=== PATIENT | female | born 1950 | race Hispanic/Latino ===

== ENCOUNTER 2017-11-23 09:15 | Inpatient (IN) | payer OTHER ==
[~2017-11-23] VITALS: Ht 149.9 cm; Wt 75.9 kg
[~2017-11-23 09:15] MED LIST: ASPI-1181 PO; DOXA1TAB2 PO; ERGO500014 PO; FURO20TA4 PO; LEVO25TA54 PO; LINA1TAB7 PO; LISI-613 PO; LORA10TA7 PO; NITR0.4T50 SL
[2017-11-23 09:55] VITALS: BP 147/77
[2017-11-23 10:19] LABS: BASOPHILS % (AUTO) 0.5 % (0.0-5.0); EOSINOPHILS % (AUTO) 1.8 % (0.0-8.0); HEMATOCRIT 36.1 % (36-48); MEAN CORPUSCULAR HEMOGLOBIN 31.6 pg (27.0-33.0); MEAN CORPUSCULAR HGB CONC 34.3 g/dL (32.0-36.0); MEAN CORPUSCULAR VOLUME 92.2 fL (79-99); MONOCYTES % (AUTO) 11.8 % (3.0-13.0); NEUTROPHILS % (AUTO) 52.9 % (40.0-77.0); PLATELET COUNT (AUTO) 160 K/uL (130-400); RED BLOOD CELL COUNT(AUTO) 3.92 MIL/uL (4.00-5.50); RED CELL DISTRIBUTION WIDTH 12.9 % (11.0-15.5); WHITE BLOOD COUNT (AUTO) 5.7 K/uL (4.8-10.8)
[2017-11-23 10:27] LABS: HEMOGLOBIN A1C 6.6 % (4.0-6.0); INR 0.95 (0.85-1.15); PARTIAL THROMBOPLASTIN TIME 25.2 SEC (26.3-35.5)
[2017-11-23 10:28] LABS: ALBUMIN 3.8 g/dL (3.5-5.0); BILIRUBIN,TOTAL 0.6 mg/dL (0.2-1.0); POTASSIUM 4.6 mmol/L (3.5-5.1); TOTAL PROTEIN, SERUM 7.9 g/dL (6.0-8.3)
[2017-11-23] MEDS ORDERED: METO100T14 PO (11:08)
[2017-11-23] MEDS ORDERED: METO50TA18 PO (11:08)
[2017-11-23] MEDS ORDERED: FLUT1AER IH (11:11)
[2017-11-24] VITALS (17 sets, daily range): BP systolic 100–167; BP diastolic 47–86
[2017-11-24] MEDS ORDERED: SODIUM CHLORIDE 0.9% 1000ML 1,000 ML IV ONE (08:39)
[2017-11-24] MEDS ORDERED: OCTYL 2-CYANOACRYLATE 1 EACH TP ONE ×2 (08:44→08:47)
[2017-11-24] MEDS ORDERED: NITROGLYCERIN 50 MG/D5% WATER 1 BOT ONE (08:45)
[2017-11-24] MEDS ORDERED: BACITRACIN 50,000 UNIT VIAL ONE (08:45)
[2017-11-24] MEDS: CEFUROXIME SODIUM 1.5 GM VIAL IVP ONE ×2 (08:55→12:20)
[2017-11-24] MEDS ORDERED: WATER FOR INJECTION,STERILE 20 ML VIAL IJ ONE (09:00)
[2017-11-24] MEDS ORDERED: SODIUM BICARB 50MEQ 50ML VIAL ONE ×2 (09:23→19:23)
[2017-11-24] MEDS ORDERED: MILRINONE-D5W 20 MG/100 ML 0 ML IV ONE (09:26)
[2017-11-24] MEDS ORDERED: EPINEPHRINE 1 MG/ML AMPULE ONE (09:26)
[2017-11-24] MEDS ORDERED: ROCURONIUM BROMIDE 10MG/1ML 5ML VL ONE (09:26)
[2017-11-24] MEDS ORDERED: PROPOFOL 10 MG/ML 20ML VIAL IV ONE ×2 (09:26→12:37)
[2017-11-24] MEDS ORDERED: ESMOLOL HCL 10 MG/ML 10 ML VIAL ONE (09:26)
[2017-11-24] MEDS ORDERED: CALCIUM CHLORIDE 100 MG/ML 10 ML SYG IVP ONE ×2 (09:26→12:00)
[2017-11-24] MEDS ORDERED: AMINOCAPROIC ACID 250 MG/ML 20 ML VIAL IV ONE ×2 (09:26→12:00)
[2017-11-24] MEDS ORDERED: HEPARIN SODIUM 1000UNIT/ML 10ML VIAL ONE (09:26)
[2017-11-24] MEDS ORDERED: FENTANYL CITRATE PF 50 MCG/1 ML 20ML VIAL IJ ONE (09:26)
[2017-11-24] MEDS ORDERED: NOREPINEPHRINE BITARTRATE 1 MG/1 ML ML IV ONE (09:26)
[2017-11-24] MEDS ORDERED: GLYCOPYRROLATE 0.2 MG/ML 5 ML VIAL ONE (09:26)
[2017-11-24] MEDS ORDERED: LIDOCAINE PF 2% 5ML ABBOJECT ONE (09:26)
[2017-11-24] MEDS ORDERED: PROTAMINE SULFATE 10 MG/ML 25ML VIAL IV ONE (09:26)
[2017-11-24] MEDS ORDERED: AMIODARONE HCL 900MG/18ML IV ONE (09:26)
[2017-11-24] MEDS ORDERED: MIDAZOLAM HCL 1 MG/ML 5ML VIAL ONE (09:26)
[2017-11-24] MEDS ORDERED: ALBUMIN (HUMAN) 25% 50 ML IV ONE (12:00)
[2017-11-24] MEDS ORDERED: PHENYLEPHRINE HCL 10 MG/ML 1ML VIAL IV ONE (12:00)
[2017-11-24] MEDS ORDERED: HEPARIN SODIUM 1000UNIT/ML 10ML VIAL IV ONE (12:00)
[2017-11-24] MEDS ORDERED: MANNITOL 25% 50ML VIAL IV ONE (12:00)
[2017-11-24] MEDS ORDERED: SODIUM BICARB 8.4% 50ML SYRINGE IVP ONE (12:00)
[2017-11-24] MEDS: AMBU PUMP 1 EACH EACH MISC SCH ×2 (12:15→14:52)
[2017-11-24 12:36] LABS: ABG BASE EXCESS -1.1 mmol/L (-2.0-3.0); ABG HCO3 24.8 mmol/L (21.0-28.0); ABG OXYGEN SATURATION 86.4 % (95.0-99.0); ABG PCO2 47 mmHg (32-45)
[2017-11-24] MEDS ORDERED: DELNIDO FORMULA 1 BAG IV ONE (12:38)
[2017-11-24] MEDS ORDERED: THROMBIN-JMI 5000 UNIT/VIAL TP ONE (12:38)
[2017-11-24 13:21] LABS: ABG HCO3 24.6 mmol/L (21.0-28.0); ABG OXYGEN SATURATION 98.5 % (95.0-99.0); ABG PCO2 40 mmHg (32-45)
[2017-11-24 13:47] LABS: ABG BASE EXCESS -0.2 mmol/L (-2.0-3.0); ABG HCO3 24.4 mmol/L (21.0-28.0); ABG OXYGEN SATURATION 98.5 % (95.0-99.0); ABG PCO2 40 mmHg (32-45)
[2017-11-24] MEDS ORDERED: SODIUM CHLORIDE 0.9% 500ML 500 ML IV SCH (14:41)
[2017-11-24 14:42] LABS: ABG HCO3 23.9 mmol/L (21.0-28.0); ABG OXYGEN SATURATION 95.2 % (95.0-99.0); ABG PCO2 46 mmHg (32-45)
[2017-11-24] MEDS ORDERED: SODIUM CHLORIDE 0.9% 250 ML IV PRN (14:45)
[2017-11-24] MEDS ORDERED: GLUCAGON 1MG KIT 1 MG ML IM PRN (14:45)
[2017-11-24] MEDS ORDERED: NITROGLYCERIN 50 MG/D5% WATER 250 BOT IV SCH (14:45)
[2017-11-24] MEDS ORDERED: POTASSIUM PHOS 15 mMOL+NS250ML 250 ML IV PRN (14:45)
[2017-11-24] MEDS ORDERED: ACETAMINOPHEN 325 MG TAB PO PRN (14:45)
[2017-11-24] MEDS ORDERED: ALBUMIN (HUMAN) 5% 250 ML IV PRN (14:45)
[2017-11-24] MEDS ORDERED: SODIUM CHLORIDE 0.9% 1000ML 1,000 ML IV SCH (14:45)
[2017-11-24] MEDS ORDERED: SODIUM CHLORIDE 0.9% 10 ML VIAL IVP PRN (14:45)
[2017-11-24] MEDS ORDERED: ONDANSETRON HCL 4 MG/2 ML VIAL IV PRN (14:45)
[2017-11-24] MEDS ORDERED: AMINOCAPROIC ACID 15,000 MG in SODIUM CHLORIDE 0.9% 250 ML IV SCH (14:45)
[2017-11-24] MEDS ORDERED: NICARDIPINE HCL 100 MG in SODIUM CHLORIDE 0.9% 100 ML IV PRN (14:45)
[2017-11-24] MEDS ORDERED: EPINEPHRINE 2 MG in SODIUM CHLORIDE 0.9% 250 ML IV PRN (14:45)
[2017-11-24] MEDS ORDERED: ACETAMINOPHEN 650 MG SUPPOSITORY RC PRN (14:45)
[2017-11-24] MEDS ORDERED: DEXTROSE 50%-WATER 50 ML DISP.SYRIN IV PRN (14:45)
[2017-11-24] MEDS ORDERED: INSULIN REGULAR, HUMAN 3ML 100 UNIT in SODIUM CHLORIDE 0.9% 99 ML IV SCH ×2 (14:45)
[2017-11-24] MEDS ORDERED: MORPHINE SULFATE 2 MG/ML 1ML SYG IV PRN (14:45)
[2017-11-24] MEDS ORDERED: POTASSIUM CHLORIDE 20MEQ/100ML 100 ML IV PRN (14:45)
[2017-11-24] MEDS ORDERED: MORPHINE SULFATE 4 MG/1ML SYG IV PRN (14:45)
[2017-11-24] MEDS ORDERED: MAGNESIUM 2GM PREMIX 50ML 50 ML IV PRN (14:45)
[2017-11-24] MEDS ORDERED: CALCIUM GLUCONATE 1 GM in SODIUM CHLORIDE 0.9% 50 ML IV PRN (14:45)
[2017-11-24] MEDS ORDERED: PROPOFOL 1000 MG/100 ML 100 ML IV PRN (14:45)
[2017-11-24] MEDS ORDERED: NOREPINEPHRINE 4MG/NS 250ML 250 ML IV PRN (14:45)
[2017-11-24] MEDS ORDERED: PHARMACY COMMUNICATION MISC SCH (15:00)
[2017-11-24 15:24] LABS: ABG BASE EXCESS -3.2 mmol/L (-2.0-3.0); ABG HCO3 21.9 mmol/L (21.0-28.0); ABG OXYGEN SATURATION 96.9 % (95.0-99.0); ABG PCO2 40 mmHg (32-45)
[2017-11-24 15:27] LABS: HEMATOCRIT 28.7 % (36-48); MEAN CORPUSCULAR HGB CONC 33.5 g/dL (32.0-36.0); MEAN CORPUSCULAR VOLUME 92.3 fL (79-99); PLATELET COUNT (AUTO) 87 K/uL (130-400); RED BLOOD CELL COUNT(AUTO) 3.11 MIL/uL (4.00-5.50); RED CELL DISTRIBUTION WIDTH 13.1 % (11.0-15.5); WHITE BLOOD COUNT (AUTO) 11.9 K/uL (4.8-10.8)
[2017-11-24 15:40] LABS: CREATININE 0.9 mg/dL (0.5-1.5); MAGNESIUM 2.2 mg/dL (1.80-2.40); PHOSPHORUS 3.8 mg/dL (2.5-4.9); POTASSIUM 4.6 mmol/L (3.5-5.1)
[2017-11-24] MEDS: SODIUM BICARB 8.4% 50ML SYRINGE IV PRN (19:27)
[2017-11-24 22:42] LABS: ABG BASE EXCESS -1.9 mmol/L (-2.0-3.0); ABG HCO3 23.1 mmol/L (21.0-28.0); ABG OXYGEN SATURATION 95.3 % (95.0-99.0); ABG PCO2 40 mmHg (32-45)
[2017-11-24] MEDS ORDERED: CEFUROXIME 1.5GM+NS 100ML 100 ML IV SCH (22:45)
[2017-11-25] VITALS (15 sets, daily range): BP systolic 102–145; BP diastolic 50–72
[2017-11-25] MEDS: WATER FOR INJECTION,STERILE 20 ML VIAL IJ SCH ×2 (00:17→13:07)
[2017-11-25] MEDS: CEFUROXIME SODIUM 1.5 GM VIAL IVP SCH ×2 (00:17→13:07)
[2017-11-25 00:25] LABS: ABG BASE EXCESS -2.6 mmol/L (-2.0-3.0); ABG HCO3 23.2 mmol/L (21.0-28.0); ABG OXYGEN SATURATION 95.9 % (95.0-99.0); ABG PCO2 44 mmHg (32-45)
[2017-11-25] MEDS ORDERED: SODIUM BICARB 50MEQ 50ML VIAL ONE (00:29)
[2017-11-25] MEDS: SODIUM BICARB 8.4% 50ML SYRINGE IV PRN (00:34)
[2017-11-25] MEDS: HYDROCODONE/ACETAMINOPHEN 5/325 MG TAB PO PRN ×3 (01:20→23:17)
[2017-11-25 04:11] LABS: HEMATOCRIT 28.1 % (36-48); MEAN CORPUSCULAR HEMOGLOBIN 33.4 pg (27.0-33.0); MEAN CORPUSCULAR HGB CONC 35.9 g/dL (32.0-36.0); MEAN CORPUSCULAR VOLUME 93.1 fL (79-99); PLATELET COUNT (AUTO) 68 K/uL (130-400); RED BLOOD CELL COUNT(AUTO) 3.01 MIL/uL (4.00-5.50); RED CELL DISTRIBUTION WIDTH 13.3 % (11.0-15.5)
[2017-11-25 04:35] LABS: PHOSPHORUS 5.1 mg/dL (2.5-4.9); POTASSIUM 3.9 mmol/L (3.5-5.1)
[2017-11-25] MEDS ORDERED: PANTOPRAZOLE 40 MG/VIAL IV SCH (09:00)
[2017-11-25] MEDS: LEVOTHYROXINE 25 MCG TABLET PO SCH (09:10)
[2017-11-25] MEDS: METOPROLOL TARTRATE 25 MG TAB PO SCH ×2 (09:10→20:38)
[2017-11-25] MEDS: ASPIRIN 81MG TAB.CHEW PO SCH (09:10)
[2017-11-25] MEDS: ALBUTEROL SULFATE 0.083% 2.5 MG/3 ML INH IH SCH ×2 (11:27→19:07)
[2017-11-25] MEDS: FAMOTIDINE 20MG TAB 20 MG TAB PO SCH (13:07)
[2017-11-25] MEDS: BUDESONIDE 0.5 MG/2 ML INH IH SCH (19:07)
[2017-11-25] MEDS: ATORVASTATIN CALCIUM 40 MG TABLET PO SCH (20:39)
[2017-11-26] MEDS: ALBUTEROL SULFATE 0.083% 2.5 MG/3 ML INH IH SCH ×5 (00:32→23:40)
[2017-11-26] MEDS: WATER FOR INJECTION,STERILE 20 ML VIAL IJ SCH (00:53)
[2017-11-26] MEDS: CEFUROXIME SODIUM 1.5 GM VIAL IVP SCH (00:53)
[2017-11-26 04:24] VITALS: BP 116/66
[2017-11-26] MEDS: LEVOTHYROXINE 25 MCG TABLET PO SCH (05:55)
[2017-11-26] MEDS: BUDESONIDE 0.5 MG/2 ML INH IH SCH ×2 (07:43→18:19)
[2017-11-26 08:04] VITALS: BP 125/62
[2017-11-26] MEDS: ASPIRIN 81MG TAB.CHEW PO SCH (08:08)
[2017-11-26] MEDS: METOPROLOL TARTRATE 25 MG TAB PO SCH ×2 (08:08→22:48)
[2017-11-26] MEDS: FAMOTIDINE 20MG TAB 20 MG TAB PO SCH (08:08)
[2017-11-26 11:19] VITALS: BP 97/52
[2017-11-26] MEDS: INSULIN HUMULIN R 100 UNIT/ML 3ML SQ SCH ×3 (12:41→22:56)
[2017-11-26] MEDS: HYDROCODONE/ACETAMINOPHEN 5/325 MG TAB PO PRN (13:40)
[2017-11-26 16:43] VITALS: BP 100/69
[2017-11-26] MEDS: METFORMIN HCL 500 MG TAB.SR.24H PO SCH (17:28)
[2017-11-26 19:58] VITALS: BP 106/65
[2017-11-26] MEDS: ATORVASTATIN CALCIUM 40 MG TABLET PO SCH (22:48)
[2017-11-26 23:10] VITALS: BP 108/51
[2017-11-27] VITALS (9 sets, daily range): BP systolic 118–150; BP diastolic 57–76
[2017-11-27] MEDS: ALBUTEROL SULFATE 0.083% 2.5 MG/3 ML INH IH SCH ×4 (06:12→23:15)
[2017-11-27] MEDS: INSULIN HUMULIN R 100 UNIT/ML 3ML SQ SCH ×4 (06:21→21:23)
[2017-11-27] MEDS: LEVOTHYROXINE 25 MCG TABLET PO SCH (06:23)
[2017-11-27] MEDS: BUDESONIDE 0.5 MG/2 ML INH IH SCH ×2 (06:30→19:09)
[2017-11-27] MEDS: METFORMIN HCL 500 MG TAB.SR.24H PO SCH ×2 (08:12→19:54)
[2017-11-27] MEDS: METOPROLOL TARTRATE 25 MG TAB PO SCH ×2 (08:12→21:21)
[2017-11-27] MEDS: ASPIRIN 81MG TAB.CHEW PO SCH (08:12)
[2017-11-27] MEDS: FAMOTIDINE 20MG TAB 20 MG TAB PO SCH (08:12)
[2017-11-27] MEDS: HYDROCODONE/ACETAMINOPHEN 5/325 MG TAB PO PRN (08:17)
[2017-11-27] MEDS: FUROSEMIDE 20 MG TABLET PO SCH (19:54)
[2017-11-27] MEDS: ATORVASTATIN CALCIUM 40 MG TABLET PO SCH (21:21)
[2017-11-28] VITALS (24 sets, daily range): BP systolic 103–161; BP diastolic 47–98
[2017-11-28 04:04] LABS: HEMATOCRIT 26.6 % (36-48); MEAN CORPUSCULAR HEMOGLOBIN 31.7 pg (27.0-33.0); MEAN CORPUSCULAR HGB CONC 34.2 g/dL (32.0-36.0); MEAN CORPUSCULAR VOLUME 92.7 fL (79-99); PLATELET COUNT (AUTO) 26 K/uL (130-400); RED BLOOD CELL COUNT(AUTO) 2.87 MIL/uL (4.00-5.50); RED CELL DISTRIBUTION WIDTH 13.2 % (11.0-15.5); WHITE BLOOD COUNT (AUTO) 6.8 K/uL (4.8-10.8)
[2017-11-28 04:14] LABS: CREATININE 0.9 mg/dL (0.5-1.5); POTASSIUM 4.6 mmol/L (3.5-5.1)
[2017-11-28] MEDS: LEVOTHYROXINE 25 MCG TABLET PO SCH (06:37)
[2017-11-28] MEDS: INSULIN HUMULIN R 100 UNIT/ML 3ML SQ SCH ×4 (06:38→21:00)
[2017-11-28] MEDS: ALBUTEROL SULFATE 0.083% 2.5 MG/3 ML INH IH SCH ×3 (07:05→19:36)
[2017-11-28] MEDS: BUDESONIDE 0.5 MG/2 ML INH IH SCH ×2 (07:05→19:36)
[2017-11-28] MEDS ORDERED: CALCIUM GLUCONATE 1 GM in SODIUM CHLORIDE 0.9% 50 ML IV SCH (08:15)
[2017-11-28] MEDS: ASPIRIN 81MG TAB.CHEW PO SCH (09:00)
[2017-11-28] MEDS: AMIODARONE HCL 200 MG TABLET PO SCH ×2 (09:53→19:53)
[2017-11-28] MEDS: FAMOTIDINE 20MG TAB 20 MG TAB PO SCH (09:53)
[2017-11-28] MEDS: METOPROLOL TARTRATE 25 MG TAB PO SCH ×2 (09:53→19:53)
[2017-11-28] MEDS: FUROSEMIDE 20 MG TABLET PO SCH ×2 (09:53→17:51)
[2017-11-28] MEDS: METFORMIN HCL 500 MG TABLET PO SCH (17:51)
[2017-11-28] MEDS: ATORVASTATIN CALCIUM 40 MG TABLET PO SCH (19:53)
[2017-11-28] MEDS: HYDROCODONE/ACETAMINOPHEN 5/325 MG TAB PO PRN (19:54)
[2017-11-29] VITALS (12 sets, daily range): BP systolic 112–157; BP diastolic 52–97
[2017-11-29] MEDS: ALBUTEROL SULFATE 0.083% 2.5 MG/3 ML INH IH SCH ×4 (00:05→19:01)
[2017-11-29 03:59] LABS: HEMATOCRIT 27.3 % (36-48); MEAN CORPUSCULAR HGB CONC 34.5 g/dL (32.0-36.0); MEAN CORPUSCULAR VOLUME 92.9 fL (79-99); PLATELET COUNT (AUTO) 31 K/uL (130-400); RED BLOOD CELL COUNT(AUTO) 2.94 MIL/uL (4.00-5.50); RED CELL DISTRIBUTION WIDTH 12.8 % (11.0-15.5); WHITE BLOOD COUNT (AUTO) 5.5 K/uL (4.8-10.8)
[2017-11-29 04:15] LABS: CREATININE 0.9 mg/dL (0.5-1.5); MAGNESIUM 1.8 mg/dL (1.80-2.40); POTASSIUM 4.1 mmol/L (3.5-5.1)
[2017-11-29] MEDS: INSULIN HUMULIN R 100 UNIT/ML 3ML SQ SCH ×4 (06:23→20:49)
[2017-11-29] MEDS: LEVOTHYROXINE 25 MCG TABLET PO SCH (06:32)
[2017-11-29] MEDS: BUDESONIDE 0.5 MG/2 ML INH IH SCH ×2 (06:35→20:04)
[2017-11-29] MEDS: AMIODARONE HCL 200 MG TABLET PO SCH ×2 (09:41→20:52)
[2017-11-29] MEDS: FUROSEMIDE 20 MG TABLET PO SCH ×2 (09:41→17:16)
[2017-11-29] MEDS: ASPIRIN 81MG TAB.CHEW PO SCH (09:42)
[2017-11-29] MEDS: FAMOTIDINE 20MG TAB 20 MG TAB PO SCH (09:42)
[2017-11-29] MEDS: METFORMIN HCL 500 MG TABLET PO SCH ×2 (09:43→17:17)
[2017-11-29] MEDS: METOPROLOL TARTRATE 25 MG TAB PO SCH ×2 (12:06→20:53)
[2017-11-29] MEDS: ATORVASTATIN CALCIUM 40 MG TABLET PO SCH (20:52)
[2017-11-30] VITALS: BP 126/69
[2017-11-30] MEDS: ALBUTEROL SULFATE 0.083% 2.5 MG/3 ML INH IH SCH ×3 (00:05→11:11)
[2017-11-30 04:00] VITALS: BP 131/72
[2017-11-30 05:17] LABS: CREATININE 0.9 mg/dL (0.5-1.5); HEMATOCRIT 30.2 % (36-48); MEAN CORPUSCULAR HEMOGLOBIN 31.4 pg (27.0-33.0); MEAN CORPUSCULAR HGB CONC 34.2 g/dL (32.0-36.0); PLATELET COUNT (AUTO) 53 K/uL (130-400); POTASSIUM 3.3 mmol/L (3.5-5.1); RED BLOOD CELL COUNT(AUTO) 3.29 MIL/uL (4.00-5.50); RED CELL DISTRIBUTION WIDTH 12.8 % (11.0-15.5); WHITE BLOOD COUNT (AUTO) 8.7 K/uL (4.8-10.8)
[2017-11-30] MEDS: INSULIN HUMULIN R 100 UNIT/ML 3ML SQ SCH ×3 (06:17→16:30)
[2017-11-30] MEDS: LEVOTHYROXINE 25 MCG TABLET PO SCH (06:18)
[2017-11-30] MEDS: BUDESONIDE 0.5 MG/2 ML INH IH SCH (06:20)
[2017-11-30 07:42] VITALS: BP 116/65
[2017-11-30] MEDS: FUROSEMIDE 20 MG TABLET PO SCH (08:16)
[2017-11-30] MEDS: METFORMIN HCL 500 MG TABLET PO SCH (08:16)
[2017-11-30] MEDS: FAMOTIDINE 20MG TAB 20 MG TAB PO SCH (08:16)
[2017-11-30] MEDS: AMIODARONE HCL 200 MG TABLET PO SCH (08:16)
[2017-11-30] MEDS: METOPROLOL TARTRATE 25 MG TAB PO SCH (08:19)
[2017-11-30] MEDS ORDERED: DRONEDARONE HYDROCHLORIDE 400 MG TABLET PO SCH (09:00)
[2017-11-30 11:18] VITALS: BP 127/63
[2017-11-30] MEDS ORDERED: DRON400T2 PO (11:35)
[2017-11-30] MEDS ORDERED: FURO20TA6 PO (11:35)
[2017-11-30] MEDS ORDERED: ATOR40TA69 PO (11:35)
[2017-11-30] MEDS ORDERED: METO25 PO (11:35)
[2017-11-30] MEDS ORDERED: LIDOCAINE HCL-MPF 1% 2ML VIAL IVP PRN (13:15)
[2017-11-30] MEDS ORDERED: POTASSIUM CHLORIDE 20MEQ/100ML 100 ML IV PRN (13:15)
[2017-11-30] MEDS ORDERED: POTASSIUM CHLORIDE 10% ELIXIR 20 MEQ/15 ML UDCUP PO PRN (13:15)
[2017-11-30] MEDS: POTASSIUM CHLORIDE 20 MEQ ERTAB PO PRN ×3 (13:16→16:41)
[2017-11-30 16:04] VITALS: BP 109/52
== END 2017-11-30 17:15 | disposition home or self-care (01) | DRG 220 ==
LOC: EDSTATUS 09:15 → DAHIP 11-24 07:28 → 2CV 11-24 14:58 → 2CH 11-25 05:50 → 2DH 11-25 15:00 → 2CV 11-27 16:41 → 2CH 11-27 16:55 → 2AH 11-29 10:50
PROVIDERS: ADMIT Thoracic Surgery (Cardiothoracic Vascular Surgery); ATTEND Thoracic Surgery (Cardiothoracic Vascular Surgery)
PROC: 02RF0JZ Replacement of Aortic Valve with Synthetic Substitute, Open Approach (ICD-10-PCS; principal; 2017-11-24 12:13)
PROC: 5A1221Z Performance of Cardiac Output, Continuous (ICD-10-PCS; 2017-11-24 12:13)
DX: I35.0 Nonrheumatic aortic (valve) stenosis (principal); I44.2 Atrioventricular block, complete; D61.818 Other pancytopenia; I48.0 Paroxysmal atrial fibrillation; I11.9 Hypertensive heart disease without heart failure; E78.5 Hyperlipidemia, unspecified; R06.89 Other abnormalities of breathing; I49.1 Atrial premature depolarization; E03.9 Hypothyroidism, unspecified; I20.9 Angina pectoris, unspecified; E11.9 Type 2 diabetes mellitus without complications; Z98.891 History of uterine scar from previous surgery; Z79.82 Long term (current) use of aspirin; Z79.899 Other long term (current) drug therapy
CPT/HCPCS: 36415; 36600; 71045; 71046; 76998; 80048; 80053; 82330; 82435; 82803; 82947; 82948; 83036; 83605; 83735; 84100; 84132; 84295; 85018; 85025; 85027; 85347; 85520; 85610; 85730; 86022; 86850; 86900; 86901; 86922; 88305; 88311; 93005; 93318; 94002; 94150; 94640; 94664; 97039; A7048; J0171; J0282; J0610; J0697; J1644; J1815; J2001; J2150; J2250; J2260; J2370; J2704; J2720; J3010; J3475; J3480; J3490; J7030; J7040; P9047